=== PATIENT | male | born 1975 | race Caucasian/White ===

== ENCOUNTER 2020-08-19 12:54 | Emergency (ER) | payer BC ==
[~2020-08-19] VITALS: Ht 188 cm; Wt 68.0 kg
--- NOTE | 2020-08-19 13:37 | EKG ---
[facility] [address] [facility] [place] [address] Signed Normal sinus rhythm Anteroseptal infarct , possibly acute ACUTE DE / STEMI Abnormal ECG No previous ECGs available Confirmed by JULES CHO MD ([id number]) on 08/19/2020 1:37:23 PM Electronically Signed By: JULES CHO MD 08/19/20 1337 PATIENT NAME: FREDO ORTEGA Electrocardiogram DATE OF : 73 PHYSICIAN: JULES CHO MD REPORT #: [id number] REPORT IS CONFIDENTIAL AND NOT TO BE RELEASED WITHOUT AUTHORIZATION
== END 2020-08-19 13:51 | disposition short-term general hospital (02) ==
LOC: ED 12:54
DX: I21.09 ST elevation (STEMI) myocardial infarction involving other coronary artery of anterior wall (principal); Z20.822 Contact with and (suspected) exposure to COVID-19
CPT/HCPCS: 71045; 80053; 83735; 84484; 85025; 93005; 93010; 96374; 99285-25; C9803; J1644; U0003

== ENCOUNTER 2023-12-19 19:34 | Emergency (ER) | payer BC ==
[~2023-12-19] VITALS: Ht 188 cm; Wt 67.7 kg
[2023-12-19 19:56] LABS: BASOPHILS 0.6 % (0-2); EOSINOPHILS 6.2 % (0-6); HEMATOCRIT 40.1 % (35.0-50.0); HEMOGLOBIN 13.6 g/dL (12.0-18.0); LYMPHOCYTES 41.4 % (24-44); MCH 31.5 (27-36); MCV 92.6 fl (81-99); NEUTROPHILS 42.8 % (39-80); PLATELET COUNT 308 K/uL (140-440); RBC 4.33 M/ul (4.3-5.7); RDW 15.2 (10.5-15.0)
[2023-12-19] MEDS ORDERED: NITROGLYCERIN PACKET TOP ONE (20:00)
[2023-12-19] MEDS ORDERED: MORPHINE SULFATE 4 MG/ML VIAL IV ONE (20:00)
[2023-12-19] MEDS ORDERED: ASPIRIN 325 MG TAB PO ONE (20:00)
[2023-12-19 20:06] LABS: INR 1.04 (0.80-1.30); PROTIME 12.9 Sec (11.2-14.2)
[2023-12-19 20:15] LABS: ALBUMIN/GLOBULIN RATIO 1.54 (1.1-2.4); ANION GAP 13.5 (7-21); BILIRUBIN, TOTAL 0.7 ng/dL (0.2-1.0); BUN/CREATININE RATIO 11.9 (6.0-28.6); CALCIUM 8.7 mg/dL (8.5-10.1); CREATININE, SERUM 1.26 mg/dL (0.70-1.30); MAGNESIUM 1.8 mg/dL (1.8-2.4); POTASSIUM 3.5 mmol/L (3.5-5.1); PROTEIN, TOTAL 6.6 g/dL (6.4-8.2)
[2023-12-19] MEDS ORDERED: ASPIRIN 81 MG CHEW PO ONE (20:15)
[2023-12-19] MEDS ORDERED: CYCLOBENZAPRINE10 MG PO (21:46)
[2023-12-19] MEDS ORDERED: CYCLOBENZAPRINE HCL 10 MG HOME.PACK PO ONE (22:15)
[2023-12-19 22:24] VITALS: BP 108/78
--- NOTE | 2023-12-20 19:13 | EKG ---
[facility] [address] [facility] [place] [address] Signed Normal sinus rhythm Septal infarct , age undetermined Abnormal ECG No previous ECGs available Confirmed by Toya Garcia ([id number]) on 12/20/2023 7:12:59 PM Electronically Signed By: TOYA GARCIA MD 12/20/231912 PATIENT NAME: JORDANFREDO YURIY Electrocardiogram DATE OF : 73 PHYSICIAN: TOYA GARCIA MD REPORT #: [id number] REPORT IS CONFIDENTIAL AND NOT TO BE RELEASED WITHOUT AUTHORIZATION
== END 2023-12-19 22:32 | disposition home or self-care (01) ==
LOC: ED 19:34
PROVIDERS: Family Medicine
DX: R07.89 Other chest pain (principal); R00.2 Palpitations
CPT/HCPCS: 36415; 71045; 80053; 83735; 84484; 85025; 85379; 85610; 93005; 93010; 96374; 99285-25; A9270; J2270